=== PATIENT | female | born 1995 | race African-American/Black ===

== ENCOUNTER 2017-06-25 15:07 | Emergency (ER) | payer SELFPAY ==
--- NOTE | 2017-06-25 15:51 | ER Document Report ---
ED Psych Disorder / Suicide - General Chief Complaint: Possible Overdose Stated Complaint: POSSIBLE OVERDOSE Time Seen by Provider: 06/25/17 15:36 Notes: The patient is a 22-year-old female, past medical history PTSD, anxiety, presents after she took 12 tabs of 600 mg ibuprofen at 10 AM in attempt to hurt herself. She said that she has had increased depression anxiety over the past few days. She is only complaining of mild epigastric pain. Patient denies homicidal ideation, hallucinations, nausea, vomiting, diarrhea, constipation, chest pain or shortness of breath. - Related Data Allergies/Adverse Reactions: No Known Allergies Allergy (Unverified 06/25/17 16:46) Past Medical History - General Information source: Patient - Social History Smoking Status: Current Some Day Smoker Frequency of alcohol use: None Drug Abuse: None Family History: Reviewed & Not Pertinent Review of Systems - Review of Systems Notes: REVIEW OF SYSTEMS: CONSTITUTIONAL: -fevers, -chills EENT: -eye pain, -difficulty swallowing, -nasal congestion CARDIOVASCULAR:-chest pain, -syncope. RESPIRATORY: -cough, -SOB GASTROINTESTINAL: +epigastric abdominal pain, +nausea, +vomiting, -diarrhea GENITOURINARY: -dysuria, -hematuria MUSCULOSKELETAL: -back pain, -neck pain SKIN: -rash or skin lesions. HEMATOLOGIC: -easy bruising or bleeding. LYMPHATIC: -swollen, enlarged glands. NEUROLOGICAL: -altered mental status or loss of consciousness, -headache, - neurologic symptoms PSYCHIATRIC: +anxiety, +depression. ALL OTHER SYSTEMS REVIEWED AND NEGATIVE. Physical Exam - Vital signs Vitals: Temp Pulse BP Pulse Ox 98.8 F 97 121/67 100 06/25/17 16:32 06/25/17 16:32 06/25/17 16:32 06/25/17 16:32 - Notes Notes: PHYSICAL EXAMINATION: GENERAL: Well-appearing, well-nourished and in no acute distress. HEAD: Atraumatic, normocephalic. EYES: Pupils equal round and reactive to light, extraocular movements intact, sclera anicteric, conjunctiva are normal. ENT: nares patent, oropharynx clear without exudates. Moist mucous membranes. NECK: Normal range of motion, supple without lymphadenopathy LUNGS: Breath sounds clear to auscultation bilaterally and equal. No wheezes rales or rhonchi. HEART: Regular rate and rhythm without murmurs ABDOMEN: Soft, mild epigastric tenderness, normoactive bowel sounds. No guarding, no rebound. No masses appreciated. EXTREMITIES: Normal range of motion, no pitting or edema. No cyanosis. NEUROLOGICAL: Cranial nerves grossly intact. Normal speech, normal gait. Normal sensory and motor exams. PSYCH: Depressed mood. SKIN: Warm, Dry, normal turgor, no rashes or lesions noted. Course - Re-evaluation Re-evalutation: 06/25/17 15:50 Pt is medically clear from her ibuprofen overdose. Instructed her that she will have some epigastric pain from the gastric irritation. She has a leukocytosis and her urinalysis shows evidence of possible urinary tract infection. She is having dysuria, so we will began Keflex 3 times daily to help her symptoms. She does not have any other evidence of infection, including no signs of meningitis, skin infections, pneumonia or intra-abdominal infections. Vomiting may also be contributing to her leukocytosis. Instructed her to follow-up with primary care physician to have her leukocytosis rechecked. Patient is not on any psychiatric medications and is not in any outpatient therapy. Will have mental health evaluate patient for further recommendations. - Vital Signs Vital signs: Temp Pulse Resp BP Pulse Ox 98.8 F 97 121/67 100 06/25/17 16:32 06/25/17 16:32 06/25/17 16:32 06/25/17 16:32 - Laboratory Result Diagrams: 06/25/17 15:45 06/25/17 15:45 Laboratory results interpreted by me: 06/25/17 06/25/17 06/25/17 15:45 15:45 15:45 WBC 22.9 H Seg Neuts % (Manual) 87 H Band Neutrophils % 2 L Lymphocytes % (Manual) 5 L Abs Neuts (Manual) 20.4 H Carbon Dioxide 21 L Urine Protein 100 H Urine Glucose (UA) 50 H Urine Ketones TRACE H Urine Blood MODERATE H Ur Leukocyte Esterase MODERATE H Salicylates < 1.0 L Acetaminophen < 10 L Discharge - Discharge Clinical Impression: NSAID overdose Qualifiers: Encounter type: initial encounter Injury intent: intentional self-harm Qualified Code(s): T39.392A - Poisoning by other nonsteroidal anti-inflammatory drugs [NSAID], intentional self-harm, initial encounter Suicidal overdose Qualifiers: Encounter type: initial encounter Qualified Code(s): T50.902A - Poisoning by unspecified drugs, medicaments and biological substances, intentional self-harm , initial encounter Leukocytosis Qualifiers: Leukocytosis type: unspecified Qualified Code(s): D72.829 - Elevated white blood cell count, unspecified UTI (urinary tract infection) Qualifiers: Urinary tract infection type: acute cystitis Hematuria presence: without hematuria Qualified Code(s): N30.00 - Acute cystitis without hematuria Condition: Stable Disposition: PSYCH HOSP/UNIT Additional Instructions: Follow with your primary care physician and contact centre supervisor to have your elevated white blood cell count rechecked. Take the full course of antibiotics as prescribed. URINARY TRACT INFECTION: Your evaluation indicates that you have a urinary tract infection. This is due to germs growing in the bladder. This is a common problem. This infection usually responds quickly to antibiotics. Your antibiotic should be taken exactly as prescribed. Drink plenty of fluids -- three to four quarts a day. Occasionally, a bladder anesthetic will be prescribed to help stop the feeling of urgency until the antibiotic has a chance to clear the infection. This may cause your urine to be dark orange. Certain urine infections require a culture. If the doctor obtained a culture, the results will be back in two days. You should call to see if a change in treatment is needed. A repeat urinalysis after you finish treatment is often recommended. The physician will let you know if further testing is required. Call the doctor if you develop fever, chills, flank pain, inability to urinate, or blood in the urine. ANTIBIOTIC THERAPY: You have been given an antibiotic prescription. It's important that you take all the medication, unless instructed otherwise by your physician. Failure to complete the entire course can result in relapse of your condition. Common side effects of antibiotics include nausea, intestinal cramping, or diarrhea. Women may develop vaginal yeast infections, and babies can get yeast (thrush) in the mouth following the use of antibiotics. Contact your physician if you develop significant side effects from this medication. Allergy to this antibiotic can result in hives, wheezing, faintness, or itching. If symptoms of allergy occur, stop the medication and call the doctor. CEPHALEXIN: The antibiotic you've been prescribed is a member of the cephalosporin class. This type of antibiotic covers a wide variety of infections, including those of the skin, lungs, and urinary tract. It's useful for staph infections. This antibiotic is slightly similar to the penicillin family. In rare cases , a person who is allergic to penicillin will also be allergic to this medication. If you have had a severe allergic reaction to penicillin, and have not taken this antibiotic since that time, notify your doctor. Antibiotics which cover many germs ("broad spectrum" antibiotics) are more likely to cause diarrhea or "yeast" infections. Women prone to vaginal yeast problems may suffer an attack after taking this antibiotic. In infants, oral thrush (white spots "stuck" on the cheek) or yeast diaper rash may result. See your doctor if these problems occur. Call at once if you develop itching, hives , shortness of breath, or lightheadedness. FOLLOW-UP CARE: If you have been referred to a physician for follow-up care, call the physician s office for an appointment as you were instructed or within the next two days. If you experience worsening or a significant change in your symptoms, notify the physician immediately or return to the Emergency Department at any time for re-evaluation. Prescriptions: Cephalexin Monohydrate [Keflex 500 mg Capsule] 500 mg PO TID 7 Days capsule Referrals: DEMETRIA ANGLIN MD [ACTIVE STAFF] - Follow up as needed
[2017-06-25] MEDS ORDERED: FAMOTIDINE 20 MG TABLET PO PRN (16:01)
[2017-06-25 16:11] LABS: HEMATOCRIT 39.6 % (36.0-47.0); HEMOGLOBIN 13.6 g/dL (12.0-15.5); HGB HCT DIFFERENCE 1.2; MEAN CORPUSCULAR HEMOGLOBIN 32.8 pg (27.0-33.4); MEAN CORPUSCULAR HGB CONC 34.2 g/dL (32.0-36.0); MEAN CORPUSCULAR VOLUME 96 fl (80-97); RED BLOOD COUNT 4.13 10^6/uL (3.72-5.28); RED CELL DISTRIBUTION WIDTH 12.4 % (11.5-14.0); WHITE BLOOD COUNT 22.9 10^3/uL (4.0-10.5)
[2017-06-25 16:26] LABS: ALANINE AMINOTRANSFERASE 21 U/L (9-52); ALBUMIN 4.4 g/dL (3.5-5.0); ALKALINE PHOSPHATASE 79 U/L (38-126); ANION GAP 19 (5-19); ASPARTATE AMINO TRANSFERASE 25 U/L (14-36); BILIRUBIN,DIRECT 0.4 mg/dL (0.0-0.4); BILIRUBIN,TOTAL 0.9 mg/dL (0.2-1.3); BLOOD UREA NITROGEN 8 mg/dL (7-20); CALCIUM 9.5 mg/dL (8.4-10.2); CARBON DIOXIDE 21 mmol/L (22-30); CHLORIDE 104 mmol/L (98-107); CREATININE RESULT 1.07 mg/dL (0.52-1.25); GLUCOSE 87 mg/dL (75-110); POTASSIUM 3.6 mmol/L (3.6-5.0); SODIUM 143.9 mmol/L (137-145); TOTAL PROTEIN 8.1 g/dL (6.3-8.2)
[2017-06-25 16:29] LABS: ALCOHOL < 10 mg/dL (NONE DETECTED)
[2017-06-25 16:35] LABS: BAND NEUTROPHILS % (MANUAL) 2 % (3-5); BASOPHILS % (MANUAL) 0 % (0-2); EOSINOPHILS % (MANUAL) 0 % (0-6); LYMPHOCYTES % (MANUAL) 5 % (13-45); TOTAL CELLS COUNTED 100
[2017-06-25 16:36] LABS: HYPOCHROMASIA SLIGHT
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
[2017-06-25 17:07] LABS: APPEARANCE,URINE CLOUDY; BILIRUBIN,URINE NEGATIVE (NEGATIVE); GLUCOSE, URINE 50 mg/dL (NEGATIVE); KETONES,URINE TRACE mg/dL (NEGATIVE); LEUKOCYTE ESTERASE,URINE MODERATE (NEGATIVE); NITRITE,URINE NEGATIVE (NEGATIVE); PROTEIN,URINE 100 mg/dL (NEGATIVE); URINE SPECIFIC GRAVITY 1.012; UROBILINOGEN,URINE NEGATIVE mg/dL (<2.0)
[2017-06-25 17:19] LABS: URINE BARBITURATES SCREEN NEGATIVE; URINE METHADONE SCREEN NEGATIVE; URINE OPIATES LOW NEGATIVE; URINE PHENCYCLIDINE SCREEN NEGATIVE
[2017-06-25] MEDS ORDERED: ONDANSETRON 4 MG TAB.RAPDIS PO PRN (18:05)
[2017-06-25] MEDS: CEPHALEXIN 500 MG CAPSULE PO SCH (20:48)
--- NOTE | 2017-06-26 09:16 | PSYCHOLOGICAL NOTE ---
Psych Note - Psych Note Psych Note: Conducted check in with patient who is a 30-year-old female who presented yesterday to [facility] ER due to allegedly overdose of ibuprofen. Patient shall he reported suicidal ideations secondary to breakup with her girlfriend, as well as chronic family social stressors. Patient is from out of state and has only reside in [place] since March 2017. Patient has no gainful employment. Patient now is homeless. Patient today states she slept well and is feeling better, but is just concerned regarding her overall social needs. Discussed with patient following up for therapy only which she states she prefers and does not want to take medications. Patient demonstrated improved insight by stating I do not think medications will help me, but therapy could be useful. Discussed with patient following up with [facility] in [place] for outpatient therapy and further assistance. Additionally made patient aware that a consultation request was put in by the MD for social work/discharge planning to meet with patient to attempt to triage some of her social problems. Patient is alert and oriented 4. Mood is euthymic with normal affect. Patient denies suicidal/homicidal ideations, intent, plan, means. Patient denies A/VH; delusions not noted. Thought processes were organized and rational. Conversational speech was within normal limits for rate, tone, and prosody. Intellectual abilities were estimated within average range. Attention and focus were fair. Insight, judgment, impulse control were poor to fair. 311 (F32.9) Unspecified Depressive Disorder 305.20 (F12.10) cannabis use disorder, mild per history Patient remains psychiatrically cleared. Patient is recommended to follow-up with [facility] in [place]. Patient is currently awaiting a discharge planning/social work consultation to assist with her social needs, specifically housing as well as other resources. An appointment has been scheduled for the patient with [facility] for outpatient therapy Sunday06/27/17 at 0900. Patient denies suicidal and homicidal ideations. Patient reports she feels better and is only concerned regarding her social stressors. I consulted with Dr. Logan in regards to the care and management of this patient.
--- NOTE | 2017-06-26 09:39 | EKG REPORT ---
SEVERITY:- NORMAL ECG - SINUS RHYTHM : Confirmed by: Yumi Cee 26-Jun-2017 09:38:29
[2017-06-26] MEDS ORDERED: LIDOCAINE 1% INJ-PF (10 MG/ML) 30 ML SDV INJ ONE (09:51)
[2017-06-26] MEDS ORDERED: CEFTRIAXONE INJ 1000 MG VIAL IM ONE (09:51)
--- NOTE | 2017-06-26 09:54 | ER Document Report ---
Doctor's Note Notes: 06/26/17 09:52 Rounds: Chart reviewed and patient interviewed. Patient is being evaluated for having overdosed on ibuprofen, was feeling suicidal. Feels somewhat better now although she says she still has some thoughts about harming herself. Patient has an apparent UTI. Her white cell count is 22,000 with a couple of bands as well as a significant shift to neutrophils. She has been started on Keflex 500 mg 3 times a day, first dose last evening. However, I am concerned with that white count whether the patient should have some parenteral medication since she was vomiting yesterday and her white count elevation and shift are concerning. I am giving her a gram of Rocephin IM. Also, patient's blood pressure this morning was 96/53, but her pulse rate was 86. She is afebrile. Patient appears to be medically stable for transfer or discharge after receiving her Rocephin IM and blood pressure returns to normal. Alexi Allan MD
[2017-06-26] MEDS: CEPHALEXIN 500 MG CAPSULE PO SCH ×2 (10:13→14:24)
[2017-06-26 14:56] VITALS: BP 110/55
== END 2017-06-26 18:00 ==
LOC: ER 15:07
DX: T39.392A Poisoning by other nonsteroidal anti-inflammatory drugs [NSAID], intentional self-harm, initial encounter (principal); D72.829 Elevated white blood cell count, unspecified; N30.00 Acute cystitis without hematuria; R10.13 Epigastric pain; R11.2 Nausea with vomiting, unspecified; F43.10 Post-traumatic stress disorder, unspecified; F17.200 Nicotine dependence, unspecified, uncomplicated
CPT/HCPCS: 93005; 99285; 96372; 36415; 87086; 80307 ×4; 84703; 85025; 80053; 81001; 93010; S0119; J0696